=== PATIENT | male | born 1950 | race Two or more races ===

== ENCOUNTER 2021-12-07 11:42 | Emergency (ER) | payer OTHER ==
[~2021-12-07] VITALS: Ht 170.2 cm; Wt 81.6 kg
[2021-12-07] MEDS ORDERED: TERAZOSIN HCL5 MG (13:00)
[2021-12-07] MEDS ORDERED: ALPRAZOLAM ODT0.5 MG (13:00)
[2021-12-07] MEDS ORDERED: EQUETRO200 MG (13:00)
[2021-12-07] MEDS ORDERED: SIMVASTATIN5 MG (13:00)
[2021-12-07] MEDS ORDERED: CITALOPRAM20 MG/10 M (13:01)
[2021-12-07] MEDS ORDERED: LOSARTAN-HCTZ1 EACH (13:01)
[2021-12-07] MEDS ORDERED: MELOXICAM15 MG (13:01)
[2021-12-07] MEDS ORDERED: PRILOSEC OTC20 MG (13:01)
[2021-12-07] MEDS ORDERED: AMLODIPINE-OLM1 EAC3 (13:02)
== END 2021-12-07 18:59 | disposition home or self-care (01) ==
LOC: ER 11:42
DX: G40.909 Epilepsy, unspecified, not intractable, without status epilepticus (principal); F32.A Depression, unspecified; I10 Essential (primary) hypertension; E87.1 Hypo-osmolality and hyponatremia